=== PATIENT | female | born 1945 | race Caucasian/White ===

== ENCOUNTER 2016-09-18 08:05 | Day surgery (SDC) | payer MEDICARE, OTHER ==
--- NOTE | ~2016-09-18 | EGD ---
EGD REPORT [facility] [address] [place] [address] NAME: CEE GARSIA : [birth year] STATUS : REG [facility] [place] PAT#: [id number] AGE: 71 ADM/REG DATE : 09/18/16 MR#: [id number] REPORT SERV DATE: 09/18/16 DICTATED BY: ANDREA LAU. DATE: 09/18/16 REPORT STATUS : Draft [facility]ANS[facility]IBED BY: [facility] DATE: 09/18/16 Endoscopy Center Patient Name: Cee Garsia Date of : 1945 Attending MD: ANDREA LAU MD Procedure Date No Time: 09/18/2016 Procedure: Colonoscopy Indications: Screening for colorectal malignant neoplasm; FHx negative; index exam. Modifier #22 attached due to length and complexity to remove multiple large polyps; time 10:56am to 11:34am. Patient Profile: Informed consent was obtained from the patient by me prior to the procedure. Risks, benefits, and alternatives were discussed including the risk of bleeding, perforation, infection, reaction to medicine, missed lesion, and cardiopulmonary complications. Referring MD: BRAN MATIAS Medicines: Monitored Anesthesia Care Complications: No immediate complications. Procedure: Pre-Anesthesia Assessment: - ASA Grade Assessment: III - A patient with severe systemic disease. After I obtained informed consent, the scope was passed under direct vision. Throughout the procedure, the patient's blood pressure, pulse, and oxygen saturations were monitored continuously. The PCF [id number] was introduced through the anus and advanced to the cecum, identified by appendiceal orifice and ileocecal valve. The colonoscope was slowly withdrawn with careful examination all mucosal surfaces including specific attention around flexures and tip deflection behind folds; retroflexion performed in rectum. The colonoscopy was performed without difficulty. The patient tolerated the procedure well. The quality of the bowel preparation was adequate. The ileocecal valve, appendiceal orifice and rectum were photographed. Findings: A sessile polyp was found in the transverse colon. The polyp was 8 mm in size. The polyp was removed with a cold snare. Resection and retrieval were complete. A flat polyp was found in the cecum. The polyp was 5 mm in size. The polyp was removed with a cold biopsy forceps. Resection and retrieval were complete. A flat polyp was found in the ascending colon. The polyp was 12 mm in EGD REPORT [place] [id number] [facility] [place]. [address] NAME: CEE GARSIA : [birth year] STATUS : REG [place]#: [id number] AGE: 71 ADM/REG DATE : 09/18/16 MR#: [id number] REPORT SERV DATE: 09/18/16 DICTATED BY: ANDREA LAU DATE: 09/18/16 REPORT STATUS : Draft TRANSCRIBED BY: [employer] DATE: 09/18/16 size. The polyp was removed with a hot snare. Resection and retrieval were complete. A pedunculated polyp was found in the proximal transverse colon. The polyp was 12 mm in size. The polyp was removed with a hot snare. Resection and retrieval were complete. A sessile polyp was found in the mid transverse colon at 75 cm proximal to the anus. The polyp was 30 mm in size. The polyp was removed with a hot snare in multiple pieces. Resection and retrieval were complete. To stop bleeding after the polypectomy, one hemostatic clip was successfully placed. Bleeding completely stopped at the end of the maneuver. Area was successfully injected with Kim ink for tattooing submucosal and adjacent. Two sessile polyps were found in the rectum. The polyps were 5 mm in size. These polyps were removed with a cold biopsy forceps. Resection and retrieval were complete. Internal hemorrhoids were found, and they were mild. Multiple medium-mouthed diverticula were found in the sigmoid colon and in the descending colon. A flat polyp was found in the transverse colon at 72 cm proximal to the anus. The polyp was 12 mm in size. Just distal to tattoo site; not removed in this setting, spasm. Impression: - One 8 mm polyp in the transverse colon. Resected and retrieved. - One 5 mm polyp in the cecum. Resected and retrieved. - One 12 mm polyp in the ascending colon. Resected and retrieved. - One 12 mm polyp in the proximal transverse colon. Resected and retrieved. - One 30 mm polyp in the mid descending colon at 75 cm proximal to the anus. Resected and retrieved. Clip was placed. Injected. - Two 5 mm polyps in the rectum. Resected and retrieved. - Internal hemorrhoids. - Diverticulosis in the sigmoid colon and in the descending colon. - One 12 mm polyp in the transverse colon at 72 cm proximal to the anus. Recommendation: - Patient has a contact number available for emergencies. The signs and symptoms of potential delayed complications were discussed with the patient. Return to normal activities tomorrow. Written discharge instructions were provided to the patient. - Regular diet. - Continue present medications. - Await pathology results. EGD REPORT [address] [address] NAME: CEE GARSIA : [birth year] STATUS : REG [place]#: [id number] AGE: 71 ADM/REG DATE : 09/18/16 MR#: [id number] REPORT SERV DATE: 09/18/16 DICTATED BY: ANDREA LAU DATE: 09/18/16 REPORT STATUS : Draft TRANSCRIBED BY: [employer] DATE: 09/18/16 - Repeat colonoscopy in 2 months for surveillance and to remove remaining polyp. Procedure Code(s): --- Professional --- 63864, Colonoscopy, flexible, proximal to splenic flexure; with removal of tumor(s), polyp(s), or other lesion(s) by snare technique 22949, 59, Colonoscopy, flexible, proximal to splenic flexure; with biopsy, single or multiple 61057, Colonoscopy, flexible, proximal to splenic flexure; with directed submucosal injection(s), any substance Diagnosis Code(s): --- Professional --- K62.1, Rectal polyp D12.4, Benign neoplasm of descending colon D12.6, Benign neoplasm of colon, unspecified D12.2, Benign neoplasm of ascending colon D12.0, Benign neoplasm of cecum D12.3, Benign neoplasm of transverse colon K64.8, Other hemorrhoids K57.30, Diverticulosis of large intestine without perforation or abscess without bleeding Z12.11, Encounter for screening for malignant neoplasm of colon CPT copyright 2013 [employer]. All rights reserved. The codes documented in this report are preliminary and upon utility aircrewman review may be revised to meet current compliance requirements. ANDREA LAU MD 09/18/2016 11:47 AM This report has been signed electronically. Number of Addenda: 0 Note Initiated On: 09/18/2016 10:41 AM Scope Withdrawal Time 0 hours 35 minutes 5 seconds [address] [address]
[~2016-09-18 08:05] MED LIST: ASAB PO; ATV.5 PO; CARDCD180 PO; CARTIA XT240 MG/24 PO; MAX25 PO; PRAVASTATIN PO; PRILOSEC40 MG PO; SUCR PO; SYMBICORT 160/41 INH INH; VITAMIN D1000 UNI1 PO
[2016-12-02] MEDS ORDERED: XARELTO20 MG PO (12:42)
== END 2016-09-18 23:59 | disposition home or self-care (01) ==
LOC: DMU 08:05
PROVIDERS: Internal Medicine Gastroenterology
PROC: 0DBH8ZX Excision of Cecum, Via Natural or Artificial Opening Endoscopic, Diagnostic (ICD-10-PCS; 2016-09-18)
PROC: 0DBP8ZX Excision of Rectum, Via Natural or Artificial Opening Endoscopic, Diagnostic (ICD-10-PCS; 2016-09-18)
PROC: 3E0H8GC Introduction of Other Therapeutic Substance into Lower GI, Via Natural or Artificial Opening Endoscopic (ICD-10-PCS; 2016-09-18)
PROC: 0DBL8ZX Excision of Transverse Colon, Via Natural or Artificial Opening Endoscopic, Diagnostic (ICD-10-PCS; principal; 2016-09-18 10:00)
PROC: 0DBK8ZX Excision of Ascending Colon, Via Natural or Artificial Opening Endoscopic, Diagnostic (ICD-10-PCS; 2016-09-18 10:00)
DX: Z12.11 Encounter for screening for malignant neoplasm of colon (principal); D12.0 Benign neoplasm of cecum; D12.2 Benign neoplasm of ascending colon; D12.3 Benign neoplasm of transverse colon; I48.91 Unspecified atrial fibrillation; K63.5 Polyp of colon; J44.9 Chronic obstructive pulmonary disease, unspecified; G47.33 Obstructive sleep apnea (adult) (pediatric); E66.01 Morbid (severe) obesity due to excess calories; Z87.891 Personal history of nicotine dependence; Z90.49 Acquired absence of other specified parts of digestive tract; K64.8 Other hemorrhoids; K57.30 Diverticulosis of large intestine without perforation or abscess without bleeding
CPT/HCPCS: 88305